=== PATIENT | female | born 2000 | race Asian ===

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

== ENCOUNTER 2018-04-20 14:24 | Outpatient (CLI) | payer MEDICAID | END 2018-04-20 23:59 | disposition home or self-care (01) | LOC: LAB.R 14:24 | PROVIDERS: ATTEND Nurse Practitioner Obstetrics & Gynecology | DX: Z11.3 Encounter for screening for infections with a predominantly sexual mode of transmission (principal) | CPT/HCPCS: 87491; 87591 ==

== ENCOUNTER 2018-04-20 14:32 | Outpatient (CLI) | payer MEDICAID ==
[2018-04-21 13:26] LABS: HIV AG/AB 4TH GEN NON-REACTIVE (NON-REACTIVE)
[2018-04-21 13:54] LABS: HEPATITIS C ANTIBODY NON-REACTIVE (NON-REACTIVE)
[2018-04-22 07:06] LABS: HSV 1 IGG TYPE SPECIFIC AB 9.75 index; HSV 2 IGG TYPE SPECIFIC AB <0.90 index
== END 2018-04-20 14:33 | disposition home or self-care (01) ==
LOC: LAB 14:32
PROVIDERS: ATTEND Nurse Practitioner Obstetrics & Gynecology
DX: Z11.3 Encounter for screening for infections with a predominantly sexual mode of transmission (principal)
CPT/HCPCS: 36415; 81599; 86592; 86695; 86696; 86803; 87389; 87491; 87591

== ENCOUNTER 2019-03-31 08:00 | Outpatient (CLI) | payer MEDICAID ==
[2019-03-31 19:03] LABS: TRICHOMONAS VAGINALIS DNA NEGATIVE (NEGATIVE)
== END 2019-03-31 23:59 | disposition home or self-care (01) ==
LOC: LAB.R 08:00
PROVIDERS: ATTEND Obstetrics & Gynecology
DX: Z11.3 Encounter for screening for infections with a predominantly sexual mode of transmission (principal)
CPT/HCPCS: 87491; 87591; 87661

== ENCOUNTER 2019-03-31 10:25 | Outpatient (CLI) | payer MEDICAID ==
[2019-04-01 10:46] LABS: HIV AG/AB 4TH GEN NON-REACTIVE (NON-REACTIVE)
[2019-04-01 12:36] LABS: HEPATITIS B SURFACE ANTIGEN NON-REACTIVE (NON-REACTIVE)
== END 2019-03-31 10:26 | disposition home or self-care (01) ==
LOC: LAB 10:25
PROVIDERS: ATTEND Obstetrics & Gynecology
DX: Z11.3 Encounter for screening for infections with a predominantly sexual mode of transmission (principal)
CPT/HCPCS: 36415; 81599; 86592; 87340; 87389; 87491; 87591; 87661

== ENCOUNTER 2020-06-03 07:00 | Outpatient (CLI) | payer MEDICAID | END 2020-06-03 23:59 | disposition home or self-care (01) | LOC: COV 07:00 | PROVIDERS: ATTEND Family Medicine | DX: Z20.822 Contact with and (suspected) exposure to COVID-19 (principal) ==

== ENCOUNTER 2022-02-24 07:33 | Day surgery (SDC) | payer MEDICAID ==
[2022-02-24] MEDS ORDERED: LACTATED RINGERS 1,000 ML IV ONE ×2 (07:43→09:52)
[2022-02-24 07:59] LABS: HCG UR QUAL NEGATIVE
--- NOTE | 2022-02-24 09:01 | ANESTHESIA ---
Pre-Anesthesia VS, & Labs - Diagnosis IUD change - Procedure IUD removal and insertion Vital Signs: Temp Pulse Resp BP Pulse Ox O2 Flow Rate 36.2 C L 61 18 117/78 97 02/24/22 07:43 02/24/22 07:43 02/24/22 07:43 02/24/22 07:43 02/24/22 07:43 Height: 5 ft 4 in Weight (kg): 61 kg Body Mass Index: 23.1 BMI Classification: Normal - NPO >8 hours - Is Patient ?: No Home Medications and Allergies Home Medications: Ambulatory Orders FLUoxetine [PROzac] 20 mg PO DAILY 02/17/22 FLUoxetine [PROzac] 20 mg PO DAILY 02/17/22 Allergies/Adverse Reactions: Allergies Allergy/AdvReac Type Severity Reaction Status Date / Time Penicillins Allergy Rash Verified 02/17/22 15:38 Anes History & Medical History - Anesthetic History Anesthesia Complications: reports: No previous complications - Medical History Cardiovascular: reports: None Pulmonary: reports: None Gastrointestinal: reports: None Urinary: reports: None Musculoskeletal: reports: None Endocrine/Autoimmune: reports: None Skin: reports: None Smoking Status: Never smoker History of Cancer?: No Exam General: Alert Dental: WNL Neck Mobility: Normal Mallampati classification: II Thyromental Distance: greater than 6 cm Respiratory: Lungs clear Cardiovascular: Regular rate Plan Anesthesia Type: Total IV Consent for Procedure(s) Verified and Reviewed: Yes Code Status: Attempt Resuscitation ASA classification: 1-Healthy patient Is this case an emergency?: No
[2022-02-24] MEDS ORDERED: LEVONORGESTREL 20 MCG/24H IUD IY ONE ×2 (09:02→09:35)
[2022-02-24] MEDS ORDERED: PROPOFOL 200 MG/20 ML VIAL IVP ONE (09:13)
[2022-02-24] MEDS ORDERED: fentaNYL 100 MCG/2 ML VIAL ONE (09:14)
[2022-02-24] MEDS ORDERED: KETOROLAC 30 MG/ML VIAL ONE (09:14)
[2022-02-24] MEDS ORDERED: MIDAZOLAM 2 MG/2 ML VIAL ONE (09:18)
[2022-02-24] MEDS ORDERED: ONDANSETRON 4 MG/2 ML VIAL ONE (09:41)
[2022-02-24] MEDS ORDERED: DEXAMETHASONE 4 MG/ML VIAL ONE (09:41)
--- NOTE | 2022-02-24 10:14 | OPERATIVE REPORT ---
Operative Report - General Procedure Date: 02/24/22 Planned Procedure: Exam under anesthesia Mirena IUD removal and reinsertion Pre-Op Diagnosis: Unable to tolerate pelvic exam in the office Procedure Performed: Exam under anesthesia Mirena removal and reinsertion - Procedure Note Primary Surgeon: Toshia Mccracken DO Secondary Surgeon: Ketty Browne NP Anesthesia Provider: RADHA Farrell Anesthesia Technique: Moderate sedation Pathology: None Indications: Unable to tolerate pelvic exam in the office Findings: Uterus sounded to 7cm Complications: None - Other Other Information/Narrative: Patient brought to OR. Placed under sedation. Time out performed. Placed in Velasquez stirrups. Small anteverted uterus. Speculum placed. Tenaculum applied to anterior lip of cervix. Strings grasped with polyp forceps and removed IUD intact. Cervix dilated. Mirena IUD inserted per protocol. Tenaculum removed. Hemostasis. Speculum removed. Counts correct x2. Taken to PACU in stable condition.
[2022-02-24 10:22] VITALS: BP 117/76
--- NOTE | 2022-02-24 11:10 | ANESTHESIA POST OP EVALUATION ---
Anesthesia Post Eval - Post Anesthesia Eval Vitals: Last Vital Signs Temp 36.0 C L 02/24/22 10:21 Pulse 53 L 02/24/22 10:21 Resp 15 02/24/22 10:21 BP 117/76 02/24/22 10:21 Pulse Ox 100 02/24/22 10:21 O2 Flow Rate CV Function Including HR & BP: Stable Pain Control: Satisfactory Nausea & Vomiting: Negative Mental Status: Baseline Respiratory Status: Airway Patent Hydration Status: Satisfactory Anesthesia Complications: None
== END 2022-02-24 07:34 | disposition home or self-care (01) ==
LOC: SDS 07:33
PROVIDERS: ATTEND Obstetrics & Gynecology
DX: Z30.433 Encounter for removal and reinsertion of intrauterine contraceptive device (principal); Z87.891 Personal history of nicotine dependence
CPT/HCPCS: 58300; 58301; 81025; J7120; J7298

== ENCOUNTER 2023-05-04 08:00 | Outpatient (CLI) | payer MEDICAID ==
[2023-05-04 19:54] LABS: BACTERIAL VAGINOSIS DNA POSITIVE (NEGATIVE); CANDIDA GLABRATA DNA NEGATIVE (NEGATIVE); CANDIDA GROUP DNA NEGATIVE (NEGATIVE); CANDIDA KRUSEI DNA NEGATIVE (NEGATIVE); TRICHOMONAS VAGINALIS DNA NEGATIVE (NEGATIVE)
== END 2023-05-04 23:59 | disposition home or self-care (01) ==
LOC: LAB.S 08:00
PROVIDERS: ATTEND Registered Nurse
DX: N76.0 Acute vaginitis (principal)
CPT/HCPCS: 81514

== ENCOUNTER 2023-05-04 11:04 | Outpatient (CLI) | payer MEDICAID ==
[2023-05-04 15:17] LABS: BASOPHILS # (AUTO) 0.1 10^3/uL (0.0-0.1); BASOPHILS % (AUTO) 0.6 %; EOSINOPHILS # (AUTO) 0.1 10^3/uL (0.0-0.7); EOSINOPHILS % (AUTO) 1.2 %; HCT - HEMATOCRIT 43.7 % (37.0-47.0); HGB - HEMOGLOBIN 14.6 g/dL (12.0-16.0); LYMPHOCYTES # (AUTO) 2.7 10^3/uL (1.5-3.5); LYMPHOCYTES % (AUTO) 22.2 %; MEAN CORPUSCULAR HEMOGLOBIN 29.4 pg (27.0-31.0); MEAN CORPUSCULAR HGB CONC 33.4 g/dL (32.0-36.0); MEAN CORPUSCULAR VOLUME 87.9 fL (81.0-99.0); MEAN PLATELET VOLUME 8.9 fL (7.9-10.8); MONOCYTES # (AUTO) 0.8 10^3/uL (0.0-1.0); MONOCYTES % (AUTO) 6.5 %; NEUTROPHILS # (AUTO) 8.2 10^3/uL (1.5-6.6); PLT - PLATELET COUNT 358 10^3/uL (130-450); RED BLOOD COUNT 4.97 10^6/uL (4.20-5.40); RED CELL DISTRIBUTION WIDTH 11.9 % (12.0-15.0); WHITE BLOOD COUNT 11.9 x10^3/uL (4.8-10.8)
[2023-05-04 15:38] LABS: ALBUMIN 4.4 g/dL (3.2-5.5); ALBUMIN/GLOBULIN RATIO 1.4 (1.0-2.2); BILIRUBIN,TOTAL 0.5 mg/dL (0.2-1.0); CALCIUM 9.5 mg/dL (8.5-10.3); CREATININE 0.7 mg/dL (0.6-1.3); TOTAL PROTEIN 7.5 g/dL (6.4-8.9)
[2023-05-04 18:06] LABS: THYROID STIMULATING HORMONE 2.94 uIU/mL (0.34-5.60)
== END 2023-05-04 11:05 | disposition home or self-care (01) ==
LOC: LAB.S 11:04
PROVIDERS: ATTEND Registered Nurse
DX: K62.5 Hemorrhage of anus and rectum (principal); F33.9 Major depressive disorder, recurrent, unspecified; F41.9 Anxiety disorder, unspecified; Z13.29 Encounter for screening for other suspected endocrine disorder
CPT/HCPCS: 36415; 80053; 84443; 85025